=== PATIENT | male | born 2000 | race Two or more races ===

== ENCOUNTER 2020-03-15 15:41 | Emergency (ER) | payer SELFPAY ==
[~2020-03-15] VITALS: Ht 180.3 cm; Wt 72.0 kg
[2020-03-15 15:49] VITALS: BP 135/72
[2020-03-15] MEDS ORDERED: IBUPROFEN 600MG TABLET PO ONE (16:15)
== END 2020-03-15 17:30 | disposition home or self-care (01) ==
LOC: ER 15:41
DX: S61.210A Laceration without foreign body of right index finger without damage to nail, initial encounter (principal); S61.218A Laceration without foreign body of other finger without damage to nail, initial encounter; S20.211A Contusion of right front wall of thorax, initial encounter; V43.62XA Car passenger injured in collision with other type car in traffic accident, initial encounter; X58.XXXA Exposure to other specified factors, initial encounter; Y93.89 Activity, other specified; Y92.89 Other specified places as the place of occurrence of the external cause; Y99.8 Other external cause status
CPT/HCPCS: 12001; 71101; 73130; 99284